=== PATIENT | male | born 1955 | race Caucasian/White ===

== ENCOUNTER 2017-05-15 01:12 | Inpatient (IN) | payer OTHER, MEDICARE ==
[~2017-05-15] VITALS: Ht 188 cm; Wt 97.5 kg
[~2017-05-15 01:12] MED LIST: ALFUZOSIN HCL E10 MG PO; ASPIRIN EC81 M1 PO; CLOBEX59 M1; LIPITOR10 M1 PO; LISINOPRIL20 M1 PO; NEUPRO; PROPRANOLOL HC120 M1 PO; SINEMET 25-1001 EACH PO; TRIHEXYPHENIDYL2 M2 PO; XYZAL5 M1 PO
--- NOTE | 2017-05-15 10:38 | Admission Core Measures ---
Admission Meds I reviewed the following Meds: Current Medications Sig/Jody Start time Last Medication Dose Stop Time Status Admin Atorvastatin Calcium 10 MG DAILY 05/16 1000 UNVr (Lipitor) Carbidopa/Levodopa 1 TAB TID 05/15 1600 UNVr (Sinemet 25/100MG) Cefazolin Sodium 2,000 MG ONCE 05/15 0000 NR (Kefzol-Ancef Inj) 05/15 2359 Lisinopril 20 MG DAILY 05/16 1000 UNVr (Prinivil) Trihexyphenidyl HCl 2 MG TID 05/15 1600 UNVr (Artane) Acute Coronary Syndrome Inclusion Criteria ACS Diagnosis No Inpatient Core Measures LDL Reminder: If No, please order W/I first 24hr of stay Congestive Heart Failure Inclusion Criteria CHF Diagnosis No Cerebrovascular accident Inclusion Criteria CVA/TIA Diagnosis No Inpatient Core Measures Bedside Swallow Eval Reminder: If BSE failed, place ST order Antithrombotic Reminder: Order Antithrombotic Medication by end of day 2 Antithrombotic Reminder: Document Reason Antithrombotic Not ordered by end of day 2 AFIB/Flutter Reminder: If Present, add to problem list AFIB/Flutter Reminder: Order Anticoag Medication for pts with AFIB/Flutter Atherosclerosis Reminder: If Present, add to problem list LDL Reminder: If No, please order W/I first 24hr of stay PT Order Reminder: If No, please order Venous thromboembolism Inpatient Core Measures VTE Risk Factors: [facility] prophylaxis d/t No contraindications No VTE Pharm Prophylaxis d/t No contraindications Inclusion Criteria - Per Current guidelines, there needs to be overlap - treatment for the first 5 days of Warfarin therapy. - Parenteral Anticoagulation (IV or SC) needs to be - given along with Warfarin therapy. VTE Diagnosis No VTE Type NONE VTE Confirmed by (Test) NONE Problem List As ranked by this Provider includes Assessment & Plan 1. Primary osteoarthritis of right knee HOME MEDS Home Med List Alfuzosin HCl (Alfuzosin HCl ER) 10 MG TAB.ER.24H 1 TAB PO DAILY BLADDER ( Reported) Aspirin (Ecotrin*) 81 MG TABLET.DR 1 TAB PO DAILY PROPHO (Reported) Atorvastatin Calcium (Lipitor) 10 MG TABLET 1 TAB PO DAILY CHOLESTEROL ( Reported) Carbidopa/Levodopa (Sinemet 25-100 MG Tablet) 25 MG-100 MG TABLET 1 TAB PO TID PARKINSONS (Reported) Levocetirizine Dihydrochloride (Xyzal) 5 MG TABLET 1 TAB PO DAILY ALLERGIES ( Reported) Lisinopril 20 MG TABLET 1 TAB PO DAILY HTN (Reported) Propranolol HCl (Propranolol HCl ER) 120 MG CAP.SA.24H 1 CAP PO DAILY PARKINSONS (Reported) Trihexyphenidyl HCl 2 MG TABLET 1 TAB PO TID PARKINSONS (Reported)
--- NOTE | 2017-05-15 13:31 | Surg Short-stay <48hrs Dis Sum ---
Visit Information Visit Dates Admission Date: 05/15/17 Discharge Date: 05/17/17 Surgical Short Stay DC Summary Admission Diagnosis: Right knee primary osteoarthritis Final Diagnosis: Same s/p right total knee replacement Procedure(s): Right total knee replacement Summary/Significant Findings: Patient was admitted to the hospital for an elective total joint replacement. The procedure was tolerated well and patient was transferred to a general surgical floor. Diet was advanced and tolerated, and the patient voided spontaneously. The patient was evaluated and treated by physical therapy. At the time of hospital discharge, the vital signs were stable, neurovascular status was intact, and pain was controlled with the use of oral pain medications. Condition at Discharge: Stable Discharge Disposition: home health services Discharge instructions provided to patient/family: Yes Post discharge follow-up plan: Follow up with Dr. Mir in 6 weeks from date of surgery. Please call his office to arrange and/or confirm this appointment.
[2017-05-15] MEDS ORDERED: MS CONTIN15 M2 PO (13:34)
[2017-05-15] MEDS ORDERED: ASPIRIN EC325 M2 PO (13:34)
[2017-05-15] MEDS ORDERED: COLACE100 M1 PO (13:34)
[2017-05-15] MEDS ORDERED: MIRALAX17 G1 PO (13:34)
[2017-05-15] MEDS ORDERED: DILAUDID2 M1 PO (13:34)
--- NOTE | 2017-05-15 13:38 | Patient Discharge Instructions ---
Discharge Instructions General Discharge Information You were seen/treated for: Right knee primary osteoarthritis You had these procedures: Right total knee replacement Watch for these problems: Increasing pain despite the use of pain medication Increasing redness, warmth or swelling Drainage of any type from incision Inability to bear weight on operative leg Persistent nausea and vomiting Fever greater than 101.5 degrees Other wound care: Please keep wound clean and dry. No ointments or lotions of any type on or near incision at any time. No exceptions. Your dressing will be changed by your nurse on the second day after your surgery. Daily dry dressing changes are recommended each day thereafter. Do not soak your wound in a bath at any time until otherwise indicated by your surgeon. You may shower, please dry wound immediately after shower with a clean towel. Special Instructions: Aspirin: You are taking this medication to help prevent blood clot formation. Please take with food to protect your stomach lining. Please take as directed. Constipation: Pain medication can cause constipation. Dr. Mir has recommended that you take Colace and miralax each day. You may discontinue this medication if you develop loose stool or diarrhea. If you wish to continue this medication, it is available over the counter. If you are unable to move your bowels after several days, if you are unable to pass gas and are developing bloating, nausea, or vomiting as a result, please contact your doctor. Diet Continue normal diet: Yes Recommended Diet: Regular Activity Activity Limited to: Weight bear as tolerated Additional ACTIVITY Info: Use assistive devices as tolerated Acute Coronary Syndrome Inclusion Criteria At DC or during hospital stay patient has or had the following: ACS DIAGNOSIS No Discharge Core Measures Meds if any: Prescribed or Continued at Discharge Meds if any: NOT Prescribed or Continued at Discharge Congestive Heart Failure Inclusion Criteria At DC or during hospital stay patient has or had the following: CHF DIAGNOSIS No Discharge Core Measures Meds if any: Prescribed or Continued at Discharge Meds if any: NOT Prescribed or Continued at Discharge Cerebrovascular accident Inclusion Criteria At DC or during hospital stay patient has or had the following: CVA/TIA Diagnosis No Discharge Core Measures Meds if any: Prescribed or Continued at Discharge Meds if any: NOT Prescribed or Continued at Discharge Venous thromboembolism Inclusion Criteria VTE Diagnosis No VTE Type NONE VTE Confirmed by (Test) NONE Discharge Core Measures - Per Current guidelines, there needs to be overlap - treatment for the first 5 days of Warfarin therapy. - If discharged on Warfarin prior to 5 days of - overlap therapy, the patient will need to be - assessed for post discharge needs including - *Post discharge parental anticoagulation - *Warfarin and/or parental anticoagulation education - *Follow up date to check INR post discharge At least 5 days overlap therapy as Inpatient No Meds if any: Prescribed or Continued at Discharge Note: Overlap Therapy is Warfarin and Anticoagulant Meds if any: NOT Prescribed or Continued at Discharge
[2017-05-15 17:45] VITALS: BP 128/78
--- NOTE | 2017-05-15 18:07 | Operative Report ---
Operative/Inv Procedure Report Surgery Date: 05/15/17 Name of Procedure: Right total knee replacement Pre-Operative Diagnosis: Primary right knee DJD Post-Operative Diagnosis: Same Estimated Blood Loss: 50ml to 100ml Surgeon/Deputy [place] Marshal: PALMA HATCH,MONTRELL Ibarra Anesthesia: block Operative/Procedure Note Note: Description of Procedure: The patient was taken to the operating room and positively identified. After induction of spinal anesthesia and administration of appropriate pre-operative antibiotics, the patient was positioned supine on the operating room table and all bony prominences were well padded. A well-padded pneumatic tourniquet was placed on the right upper thigh. After performing a surgical timeout, the right lower extremity was prepped and draped in the usual sterile fashion. After exsanguination with Esmarch the tourniquet was inflated to 250mm of mercury. A standard medial parapatellar approach was made to the knee. This was carried down through skin and subcutaneous tissue to the level of the fascia. Meticulous hemostasis was maintained with Bovie electrocautery. The extensor mechanism and patellar retinaculum were opened sharply and the patella was everted. The infrapatellar fat was resected in order to improve exposure. Osteophytes were trimmed from the patella and femoral condyles and the patella was re-everted and tucked laterally. A medial release was performed and the cruciate ligaments were resected. The tibia was then subluxed anteriorly. Utilizing the appropriate extra-medullary guide, the proximal tibia was trimmed perpendicular to the long axis of the tibial shaft. Attention was then turned to the femur. After opening the medullary canal, the distal femoral cut was made in 6 degrees of valgus utilizing the appropriate intra-medullary guide. The extension gap was checked and found to be appropriate. The femur was then sized and the remainder of the femoral cuts were made with a size 7 4-in-1 femoral cutting guide. The flexion gap was checked and found to be symmetric and appropriate. The knee was then trialed with a size 7 femoral component, a size 7 tibial component and a size 11 mm TS polyethylene insert. The patella was trimmed to accept an A 38 patella. This yielded excellent range of motion, stability and patellar tracking. All trial components were removed and the knee was copiously irrigated with sterile saline. All components were cemented into place with Leola Simplex cement. All the components were of the [place] Triathlon knee system of the above stated sizes. The knee was again irrigated after cementation. The extensor mechanism and patellar retinaculum were repaired using interrupted #1 vicryl suture. The skin was re-approximated with 2-0 vicryl and closed with katina. A sterile dressing was applied, the tourniquet was deflated, the patient was awakened and taken to the recovery room in satisfactory condition.
--- NOTE | 2017-05-15 19:11 | NUR ---
NURSING NOTE: PT C/O BLADDER DISCOMFORT. BLADDER SCANNED FOR 903ML. YVONNE DELVALLE NOTIFIED AND ONE TIME ORDER FOR STRAIGHT CATH PLACED. RECEIVED 650ML FROM STRAIGHT CATH. WILL CONTINUE TO MONITOR.
[2017-05-15 20:07] VITALS: BP 134/72
--- NOTE | 2017-05-15 21:19 | PN- Orthopedic ---
Subjective Subjective: POST OP CHECK could not void. SCx1 for 900cc. felt urge again, could not void- bladder scanned for 700. bazzi inserted and flomax given, approx 800cc urine out via bazzi. feels relieved. incisional pain well controlled. Objective Vital Signs and I&Os Vital Signs Date Time Temp Pulse Resp B/P B/P Pulse O2 O2 Flow FiO2 Mean Ox Delivery Rate 05/15 2049 78 130/78 05/15 2007 98.2 79 18 134/72 92 05/15 1745 98.4 80 18 128/78 97 Room Air Room Air Physical Exam: GEN: NAD CARD: S1S2 RRR PULM: CTAB ABD: soft, nt URO: bazzi draining clear yellow urine EXT: r knee dressing cdi, gross sensate intact, +DP bl, +plantar/dorsiflexion bl , calves soft nt Assessment/Plan Assessment/Plan A: POD0 sp right TKR, with postoperative urinary retention now resolved with Bazzi placement, otherwise stable P: - DVT ppx: asa bid - Regular diet as tolerated - prn pain meds - OOB, ambulate, PT, WBAT - abx x23hr postop ppx - am labs - Home meds - will dw attending Core Measures/Miscellaneous Bazzi Catheter Date In: 05/15/17 Still Needed? Yes (retention postop) Venous Thromboembolism VTE Risk Factors: Surgery VTE Contraindications: No Contraindications VTE Diagnosis: No VTE Type: NONE VTE Confirmed by (Test): NONE Beta Fabby Is Beta Fabby a Home Med? Yes If Yes, Was This Ordered Today? Yes Antibiotics Is Patient on Antibiotics? Yes If Yes: prophylaxis
[2017-05-15 22:00] VITALS: BP 142/80
[2017-05-16 00:04] VITALS: BP 130/64
[2017-05-16 04:22] VITALS: BP 130/70
[2017-05-16 08:04] VITALS: BP 132/74
[2017-05-16 09:25] LABS: ABSOLUTE BASOPHIL COUNT 0 /CUMM (0.0-0.2); ABSOLUTE EOSINOPHIL COUNT 0 /CUMM (0.0-0.7); ABSOLUTE LYMPH COUNT 1.1 /CUMM (1.2-3.4); ABSOLUTE MONOCYTE COUNT 0.7 /CUMM (0.10-0.60); BASOPHIL % 0.2 % (0.0-2.0); EOSINOPHIL % 0 % (0-5); HEMATOCRIT 45.3 % (42-52); MEAN CORPUSCULAR HGB 31.2 PG (27.0-31.0); MEAN CORPUSCULAR HGB CONC 33.5 G/DL (33.0-37.0); MEAN CORPUSCULAR VOLUME 93.4 FL (80.0-94.0); MEAN PLATELET VOLUME 8.8 FL (7.4-10.4); PLATELET COUNT 189 /CUMM (130-400); RBC DISTRIBUTION WIDTH 13.2 % (11.5-14.5); RED BLOOD CELL CT 4.85 /CUMM (4.70-6.10); WHITE BLOOD CELL COUNT 22.8 /CUMM (4.8-10.8)
--- NOTE | 2017-05-16 11:14 | PN- Orthopedic ---
Subjective Subjective: Bazzi catheter placed last night for urinary retention. He reports history of this issue with a prior surgery. Tolerating diet. No nausea. Out of bed with PT. To try stairs later today. No dizziness. No shortness of breath. No chest pains. Goal for home in 1-2 days. Objective Vital Signs and I&Os Vital Signs Date Time Temp Pulse Resp B/P B/P Pulse O2 O2 Flow FiO2 Mean Ox Delivery Rate 05/16 1038 Room Air 05/16 0806 78 132/74 05/16 0805 78 132/74 05/16 0804 98.4 78 18 132/74 94 Room Air Room Air 05/16 0422 98.1 76 20 130/70 92 Room Air 05/16 0004 98.1 74 20 130/64 91 Room Air 05/15 2200 98.3 75 18 142/80 91 05/15 2049 78 130/78 05/15 2007 98.2 79 18 134/72 92 05/15 1745 98.4 80 18 128/78 97 Room Air Room Air Intake & Output 05/16 1600 05/16 0800 05/16 0000 05/15 1600 05/15 0800 05/15 0000 Intake Total 770 950 Output Total 1000 2750 Balance -230 -1800 Intake, IV 650 350 Intake, Oral 120 600 Output, Urine 1000 2750 Patient 215 lb Weight Physical Exam: General - alert & oriented x 3. comfortable. out of bed to chair. Lungs - clear bilaterally. no w/r/r. Cardiac - s1s2. reg. Abdomen - soft. nontender. - bazzi draining clear, yellow urine. Extremities - warm bilaterally. no c/c/e. right knee dressing c/d/i. no drains. on q in place. nvi. Current Medications: Current Medications Sig/Jody Start time Last Medication Dose Route Stop Time Status Admin Acetaminophen 650 MG Q4P PRN 05/15 1800 AC PO Acetaminophen 0 .STK-MED ONE 05/15 1229 DC PO Aspirin 325 MG BID 05/15 220 AC 05/16 PO 0806 Atorvastatin Calcium 10 MG 1700 05/16 1700 DC PO Atorvastatin Calcium 10 MG 1700 05/16 1700 AC PO Carbidopa/Levodopa 1 TAB 0600,1200,1800 05/16 1200 AC 05/16 PO 0808 Carbidopa/Levodopa 1 TAB TID 05/15 2200 DC 05/15 PO 2029 Carbidopa/Levodopa 1 TAB TID 05/15 1600 DC PO Cefazolin Sodium 2 GM Q8H 05/15 1900 DC 05/16 N/A 1 UNIT IV 05/16 0329 0248 Cefazolin Sodium 2,000 MG ONCE 05/15 0000 DC IV 05/15 2359 Dextrose/Sodium 1,000 ML .[id number] 05/16 1115 UNVr Chloride IV Dextrose/Sodium 1,000 ML .[id number] 05/15 1800 DC 05/15 Chloride IV 2157 Docusate Sodium 100 MG BID 05/15 2200 AC 05/16 PO 0806 Hydromorphone HCl 2 MG Q4P PRN 05/15 1800 AC 05/16 PO 0248 Hydromorphone HCl 4 MG Q4P PRN 05/15 1800 AC PO Ketorolac 15 MG Q8P PRN 05/15 1800 AC Tromethamine IM 05/18 1750 Lisinopril 20 MG DAILY 05/16 1000 DC PO Lisinopril 20 MG DAILY 05/16 1000 DC PO Lisinopril 20 MG 05/16 0600 AC 05/16 PO 0805 Morphine Sulfate 2 MG Q2P PRN 05/15 1800 AC IV Omeprazole 20 MG DAILY AC 05/16 0700 AC 05/16 PO 0542 Ondansetron HCl 4 MG Q6P PRN 05/15 1800 AC IV Oxycodone HCl 0 .STK-MED ONE 05/15 1231 DC PO Polyethylene Glycol 17 GM DAILY 05/16 1000 AC 05/16 PO 0807 Promethazine HCl 12.5 MG Q6P PRN 05/15 1800 AC IV 05/22 1329 Propranolol HCl 120 MG DAILY 05/16 1000 DC PO Propranolol HCl 120 MG 05/16 0600 AC 05/16 PO 0806 Ropivacaine 500 ML ONCE ONE 05/15 1515 AC 05/15 ON-Q Ball 1 BAG INJ 05/17 1714 1751 Tamsulosin HCl 0.4 MG 05/16 2200 AC PO Tamsulosin HCl 0.4 MG DAILY 05/16 1000 DC PO Tamsulosin HCl 0.4 MG DAILY 05/15 2045 DC 05/15 PO 2049 Trihexyphenidyl HCl 2 MG 0600,1200,1800 05/16 1200 DC PO Trihexyphenidyl HCl 3 MG 0600,1200,1800 05/16 1200 AC PO Trihexyphenidyl HCl 2 MG TID 05/15 2200 DC 05/16 PO 0807 Trihexyphenidyl HCl 2 MG TID 05/15 1600 DC PO Results Last 48 Hours of Labs: Laboratory Tests 05/16 0748 Chemistry Sodium (137 - 145 mmol/L) 139 Potassium (3.5 - 5.1 mmol/L) 4.1 Chloride (98 - 107 mmol/L) 103 Carbon Dioxide (22 - 30 mmol/L) 26 Anion Gap (5 - 16) 11 BUN (9 - 20 mg/dL) 10 Creatinine (0.7 - 1.2 mg/dL) 0.6 L Estimated GFR (>60 ml/min) > 60 BUN/Creatinine Ratio (7 - 25 %) 16.7 Hematology CBC w Diff Pending WBC Pending RBC Pending Hgb Pending Hct Pending MCV Pending MCH Pending RDW Pending Plt Count Pending MPV Pending PUBS MCHC Pending Assessment/Plan Assessment/Plan This 61 year old male with hx parkinsons disease, htn, hld, ?bph, is now POD#1 s /p right total knee replacement for primary right knee DJD, bazzi inserted for urinary retention / bph? related tolerating diet d/c bazzi for voiding trial. continue iv fluids until able to void continue PT reviewed home meds f/u labs asa bid - dvt ppx dressing change on on-q removal tomorrow, POD#2 plan for home in 1-2 days pending PT clearance will d/w Core Measures/Miscellaneous Bazzi Catheter Date In: 05/15/17 Venous Thromboembolism VTE Risk Factors: Surgery VTE Contraindications: No Contraindications VTE Diagnosis: No VTE Type: NONE VTE Confirmed by (Test): NONE Beta Fabby Is Beta Fabby a Home Med? Yes If Yes, Was This Ordered Today? Yes Antibiotics Is Patient on Antibiotics? Yes If Yes: prophylaxis
[2017-05-16 14:40] VITALS: BP 120/60
--- NOTE | 2017-05-16 17:34 | NUR ---
PATIENT VOIDED 200 ML IN URINAL AT 1730.
--- NOTE | 2017-05-16 18:50 | NUR ---
BLADDER SCANNED AT 1843 PER SURGICAL PA, >272. PT THEN VOIDED IN URINAL 100CC. INFORMED TIMOTEO RUSSELL, WILL CONTINUE TO MONTIOR PATIENT. PATIENT NO C/O DISCOMFORT, FEELS HE WILL CONTINUE TO BE ABLE TO VOID.
[2017-05-16 22:28] VITALS: BP 122/70
[2017-05-17 06:16] VITALS: BP 132/84
--- NOTE | 2017-05-17 07:26 | PN- Orthopedic ---
Subjective Subjective: Reports increased pain this morning, which he feels is worse after the on q was removed around 6am. Voiding without difficulty since bazzi removed. Tolerating diet. No nausea. Cleared stairs with PT yesterday. No dizziness. No shortness of breath. No chest pains. Objective Vital Signs and I&Os Vital Signs Date Time Temp Pulse Resp B/P B/P Pulse O2 O2 Flow FiO2 Mean Ox Delivery Rate 05/17 0617 80 132/84 05/17 0617 80 132/84 05/17 0616 98.2 80 18 132/84 96 05/16 2228 98.4 76 18 122/70 95 Room Air 05/16 2208 122/70 05/16 1440 98.3 74 18 120/60 93 Room Air 05/16 1038 Room Air 05/16 0806 78 132/74 05/16 0805 78 132/74 05/16 0804 98.4 78 18 132/74 94 Room Air Room Air Intake & Output 05/17 0800 05/17 0000 05/16 1600 05/16 0800 05/16 0000 05/15 1600 Intake Total 469 833 4629 770 950 Output Total 550 1664 844 4706 2750 Balance -290 -592 1000 -230 -1800 Intake, IV 20 263 600 650 350 Intake, Oral 240 720 800 120 600 Output, Urine 550 7225 272 7446 2750 Patient 215 lb Weight Physical Exam: General - alert & oriented x 3. comfortable. no acute distress. Lungs - clear bilaterally. no w/r/r. Cardiac - s1s2. reg. Abdomen - soft. nontender. Extremities - warm bilaterally. dressing removed. incision well approximated with katina. no erythema or exudates. nvi. calves soft and nontender b/l. on q already removed. Current Medications: Current Medications Sig/Jody Start time Last Medication Dose Route Stop Time Status Admin Acetaminophen 650 MG Q4P PRN 05/15 1800 AC PO Aspirin 325 MG BID 05/15 2200 AC 05/16 PO 220 Atorvastatin Calcium 10 MG 1700 05/16 1700 DC PO Atorvastatin Calcium 10 MG 1700 05/16 1700 AC 05/16 PO 1651 Carbidopa/Levodopa 1 TAB 0600,1200,1800 05/16 1200 AC 05/17 PO 0616 Carbidopa/Levodopa 1 TAB TID 05/15 2200 DC 05/15 PO 2029 Dextrose/Sodium 1,000 ML .[id number] 05/16 1115 DC 05/16 Chloride IV 1141 Dextrose/Sodium 1,000 ML .[id number] 05/15 1800 DC 05/15 Chloride IV 2157 Docusate Sodium 100 MG BID 05/15 2200 AC 05/16 PO 2207 Hydromorphone HCl 2 MG Q4P PRN 05/15 1800 AC 05/17 PO 0343 Hydromorphone HCl 4 MG Q4P PRN 05/15 1800 AC 05/16 PO 2207 Ketorolac 15 MG Q8P PRN 05/17 0615 AC 05/17 Tromethamine IV 0611 Ketorolac 15 MG Q8P PRN 05/15 1800 DC Tromethamine IM 05/18 1750 Lisinopril 20 MG DAILY 05/16 1000 DC PO Lisinopril 20 MG DAILY 05/16 1000 DC PO Lisinopril 20 MG 0600 05/16 0600 AC 05/17 PO 0617 Morphine Sulfate 15 MG BID 05/17 0730 UNVr PO Morphine Sulfate 2 MG Q2P PRN 05/15 1800 AC IV Omeprazole 20 MG DAILY AC 05/16 0700 AC 05/17 PO 0616 Ondansetron HCl 4 MG Q6P PRN 05/15 1800 AC IV Patient Medication 1 ED .STK-MED ONE 05/16 1427 DC Teaching ED 05/16 1428 Polyethylene Glycol 17 GM DAILY 05/16 1000 AC 05/16 PO 0807 Promethazine HCl 12.5 MG Q6P PRN 05/15 1800 AC IV 05/22 1329 Propranolol HCl 120 MG DAILY 05/16 1000 DC PO Propranolol HCl 120 MG 05/16 0600 AC 05/17 PO 0617 Ropivacaine 500 ML ONCE ONE 05/15 1515 AC 05/15 ON-Q Ball 1 BAG INJ 05/17 1714 1751 Tamsulosin HCl 0.4 MG 05/16 AC 05/16 PO 2208 Tamsulosin HCl 0.4 MG DAILY 05/15 2045 DC 05/15 PO 2049 Trihexyphenidyl HCl 2 MG 0600,1200,1800 05/16 1200 DC PO Trihexyphenidyl HCl 3 MG 0600,1200,1800 05/16 1200 AC 05/17 PO 0615 Trihexyphenidyl HCl 2 MG TID 05/15 2200 DC 05/16 PO 0807 Results Last 48 Hours of Labs: Laboratory Tests 05/16 0748 Chemistry Sodium (137 - 145 mmol/L) 139 Potassium (3.5 - 5.1 mmol/L) 4.1 Chloride (98 - 107 mmol/L) 103 Carbon Dioxide (22 - 30 mmol/L) 26 Anion Gap (5 - 16) 11 BUN (9 - 20 mg/dL) 10 Creatinine (0.7 - 1.2 mg/dL) 0.6 L Estimated GFR (>60 ml/min) > 60 BUN/Creatinine Ratio (7 - 25 %) 16.7 Hematology CBC w Diff MAN DIFF ORDERED WBC (4.8 - 10.8 /CUMM) 22.8 H RBC (4.70 - 6.10 /CUMM) 4.85 Hgb (14.0 - 18.0 G/DL) 15.1 Hct (42 - 52 %) 45.3 MCV (80.0 - 94.0 FL) 93.4 MCH (27.0 - 31.0 PG) 31.2 H RDW (11.5 - 14.5 %) 13.2 Plt Count (130 - 400 /CUMM) 189 MPV (7.4 - 10.4 FL) 8.8 Gran % (42.2 - 75.2 %) 92.0 H Lymphocytes % (20.5 - 51.1 %) 4.7 L Monocytes % (1.7 - 9.3 %) 3.1 Eosinophils % (0 - 5 %) 0 Basophils % (0.0 - 2.0 %) 0.2 Absolute Granulocytes (1.4 - 6.5 /CUMM) 21.0 H Segmented Neutrophils (42.2 - 75.2 %) 81 H Band Neutrophils (0.0 - 5.0 %) 10 H Absolute Lymphocytes (1.2 - 3.4 /CUMM) 1.1 L Lymphocytes (20.5 - 51.1 %) 5 L Monocytes (1.7 - 9.3 %) 4 Absolute Monocytes (0.10 - 0.60 /CUMM) 0.7 H Absolute Eosinophils (0.0 - 0.7 /CUMM) 0 Absolute Basophils (0.0 - 0.2 /CUMM) 0 Normocytic RBCs VERIFIED Normochromic RBCs VERIFIED PUBS MCHC (33.0 - 37.0 G/DL) 33.5 Assessment/Plan Assessment/Plan This 61 year old male with hx parkinsons disease, htn, hld is now POD#2 s/p right total knee replacement for primary right knee DJD, now voiding without difficulty s/p bazzi removal but reporting increased pain this morning since on q was removed tolerating diet add ms contin 15 bid for pain control. continue dilaudid po and toradol prn continue PT f/u labs asa bid - dvt ppx dressing changed on q removed earlier cleared by PT for home d/c home later pending improved pain control will d/w Core Measures/Miscellaneous Bazzi Catheter Date In: 05/15/17 Venous Thromboembolism VTE Risk Factors: Surgery VTE Contraindications: No Contraindications VTE Diagnosis: No VTE Type: NONE VTE Confirmed by (Test): NONE Beta Fabby Is Beta Fabby a Home Med? Yes If Yes, Was This Ordered Today? Yes Antibiotics Is Patient on Antibiotics? Yes If Yes: prophylaxis
[2017-05-17 08:09] LABS: ABSOLUTE BASOPHIL COUNT 0 /CUMM (0.0-0.2); ABSOLUTE EOSINOPHIL COUNT 0 /CUMM (0.0-0.7); ABSOLUTE GRANULOCYTE CT 11.3 /CUMM (1.4-6.5); ABSOLUTE LYMPH COUNT 1.9 /CUMM (1.2-3.4); ABSOLUTE MONOCYTE COUNT 1.6 /CUMM (0.10-0.60); BASOPHIL % 0.1 % (0.0-2.0); EOSINOPHIL % 0.1 % (0-5); GRANULOCYTE % 76.2 % (42.2-75.2); HEMATOCRIT 40.8 % (42-52); MEAN CORPUSCULAR HGB 31.2 PG (27.0-31.0); MEAN CORPUSCULAR HGB CONC 33.4 G/DL (33.0-37.0); MEAN CORPUSCULAR VOLUME 93.3 FL (80.0-94.0); MEAN PLATELET VOLUME 8.9 FL (7.4-10.4); PLATELET COUNT 169 /CUMM (130-400); RBC DISTRIBUTION WIDTH 13.4 % (11.5-14.5); RED BLOOD CELL CT 4.38 /CUMM (4.70-6.10); WHITE BLOOD CELL COUNT 14.9 /CUMM (4.8-10.8)
[2017-05-17 14:48] VITALS: BP 128/68
[2017-05-17 22:00] VITALS: BP 138/72
[2017-05-18 06:33] VITALS: BP 138/72
[2017-05-18 06:41] VITALS: BP 138/72
--- NOTE | 2017-05-18 08:51 | PN- Orthopedic ---
Subjective Subjective: No acute overnight events reported. Pain has improved since yesterday with po medication. Has been OOB, has cleared PT and is anticipating discharge today. Denies chest pain, shortness of breath and difficulty breathing. Denies nausea and vomitting. Has been voiding without difficulty. Objective Vital Signs and I&Os Vital Signs Date Time Temp Pulse Resp B/P B/P Pulse O2 O2 Flow FiO2 Mean Ox Delivery Rate 05/18 0641 79 138/72 05/18 0640 138/72 05/18 0633 99.3 79 20 138/72 94 Room Air 05/17 2200 98.5 67 18 138/72 94 Room Air 05/17 2108 67 138/72 05/17 1448 98.1 75 18 128/68 100 Room Air Intake & Output 05/18 1600 05/18 0805/18 0000 05/17 1600 05/17 0805/17 0000 Intake Total 725 097 8436 260 983 Output Total 675 786 643 5758 Balance -475 840 200 -290 -592 Intake, IV 20 263 Intake, Oral 603 492 3350 240 720 Output, Urine 675 122 851 2556 Physical Exam: General: Alert and oriented x3, no acute distress Cardiac: s1s2, regular rate, occasional ectopy auscultated Pulm: CTA bilaterally Abdomen: Non-tender, non-distended Extremiteis: MOves all extremities, distal sensation intact, skin warm and well perfused. Bilateral calves soft and non-tender Surgical site: Right knee, dressing dry and intact Assessment/Plan Assessment/Plan This is a 61 year old male, POD 3, s/p R TKR -continue current pain regimen -oob, wbat -continue asa dvt ppx -diet as toelrated -bowel regimen to continue -dc home with services today Core Measures/Miscellaneous [place] Catheter Date In: 05/15/17 Venous Thromboembolism VTE Risk Factors: Surgery VTE Contraindications: No Contraindications VTE Diagnosis: No VTE Type: NONE VTE Confirmed by (Test): NONE Beta Fabby Is Beta Fabby a Home Med? Yes If Yes, Was This Ordered Today? Yes Antibiotics Is Patient on Antibiotics? Yes If Yes: prophylaxis
== END 2017-05-18 14:07 | disposition home health service (06) | DRG 470 ==
LOC: SDA 01:12 → ENRESERV 16:02 → ENTRNSPT 16:55 → 2NB 17:37 → CMPTRNSPT 17:55 → ENPENDDIS 05-18 08:56 → 2NB 05-18 14:07
PROVIDERS: Physician Assistant; Physician Assistant Surgical; ADMIT Orthopaedic Surgery
PROC: 0SRC0JA Replacement of Right Knee Joint with Synthetic Substitute, Uncemented, Open Approach (ICD-10-PCS; principal; 2017-05-15)
DX: M17.11 Unilateral primary osteoarthritis, right knee (principal); G20 Parkinson's disease; I10 Essential (primary) hypertension; M25.761 Osteophyte, right knee; R33.9 Retention of urine, unspecified; E78.5 Hyperlipidemia, unspecified; N40.1 Benign prostatic hyperplasia with lower urinary tract symptoms
CPT/HCPCS: 2NBSP; 36415; 82436; 87086; 88305; 97110-GO; 97116-GO; 97161-GP; 97530-GO; C1713; J0690; J1885; J2405; J2550; J2795; J7042